=== PATIENT | male | born 1970 | race Caucasian/White ===

== ENCOUNTER 2018-10-25 10:35 | Day surgery (SDC) | payer MEDICAID ==
[2018-10-22 08:42] VITALS: BMI 38.9
[~2018-10-25 10:35] MED LIST: LACTATED RINGERS 1,000 ML IV SCH; LIDOCAINE 1% 20 ML VIAL (10MG/ML) FOR IV START INTRADERMA PRN
[2018-10-25 10:54] VITALS: TEMP 98
[2018-10-25] MEDS ORDERED: LACTATED RINGERS 1,000 ML IV ONE (10:56)
[2018-10-25] MEDS ORDERED: PROPOFOL 10 MG/ML 20 ML VIAL IV ONE (11:05)
[2018-10-25 11:45] VITALS: RESP 16
[2018-10-25 12:08] VITALS: BP 132/84; PULSE 72
--- NOTE | 2018-10-25 12:23 | P.PCN ---
Date of Procedure: 10/25/18 Procedure(s) Performed: Procedure: 1. Esophagogastroduodenoscopy and biopsy. 2. Total colonoscopy. Preoperative diagnosis: Iron deficiency anemia and dark stools. Postoperative diagnosis: 1. Small sliding hiatal hernia with no obvious esophagitis or complicated reflux disease. 2. Mild antral gastritis. 3. Biopsies obtained from the duodenum, antrum and esophagus. 4. Colonoscopy within normal limits. Preparation: HalfLytely prep. Sedation: Was provided by anesthesia. Brief clinical history: The patient is a 48-year-old male who is referred for this evaluation because of iron deficiency anemia and history of dark stools. There is history of acid reflux but no other alarm symptoms. This would be his first upper endoscopy and colonoscopy. Procedure: With the patient on his left lateral decubitus position and after informed consent and adequate sedation, I passed the Olympus-GIF H190 video upper endoscope through the cricopharyngeus down the esophagus. GE junction was around 41 cm from the incisors and there was a small sliding hiatal hernia but no obvious esophagitis or complicated reflux disease. The endoscope was then passed into the stomach which was insufflated with air and inspected in detail including the retroflex view in the cardia. There was some mottling and erythema in the antrum but no ulcers or erosions. Pyloric channel, duodenal bulb, post bulbar area and descending duodenum appeared within normal limits. Because of his symptoms and iron deficiency anemia, I obtained biopsies from the duodenum, antrum and esophagus then the endoscope was withdrawn and I proceeded with the colonoscopy. Perianal area did not show any fissures or fistulas. There were no masses felt on digital rectal examination. The Olympus CF H1 90L video colonoscope was then inserted in the rectum in the usual fashion and advanced to the cecum. The mucosa appeared healthy. No polyps or tumors were seen or any obvious diverticular disease or other pathology. I retroflexed the endoscope in the rectum before the endoscope was withdrawn. The patient tolerated the procedure well. Plan: The patient was reassured. He will follow up with you as planned and we will await the biopsy results. Consideration can be given for a capsule endoscopy if he continues to have issues with iron deficiency anemia and suggestion of blood loss in the GI tract.
== END 2018-10-25 12:16 | disposition home or self-care (01) ==
LOC: ORWHC2ENDO 10:35
DX: K29.50 Unspecified chronic gastritis without bleeding (principal); K21.0 Gastro-esophageal reflux disease with esophagitis; D50.9 Iron deficiency anemia, unspecified; K44.9 Diaphragmatic hernia without obstruction or gangrene; E66.01 Morbid (severe) obesity due to excess calories; G47.33 Obstructive sleep apnea (adult) (pediatric); E78.5 Hyperlipidemia, unspecified; I10 Essential (primary) hypertension; Z79.82 Long term (current) use of aspirin; Z79.899 Other long term (current) drug therapy; Z68.39 Body mass index [BMI] 39.0-39.9, adult
CPT/HCPCS: 88305; 45378; 43239; J2704

== ENCOUNTER → 2022-03-21 | Outpatient (CLI) | payer MEDICAID ==
--- NOTE | 2022-03-22 05:06 | MR ---
EXAMINATION TYPE: MR knee RT wo con DATE OF EXAM: 03/21/2022 COMPARISON: None HISTORY: Right knee pain and swelling for 1 year. Multiplanar multiecho imaging of the right knee without contrast. There is a moderate-sized knee joint effusion. The anterior and posterior cruciate ligaments are inta ct. Patellar tendon is intact. The lateral collateral ligament is intact. There is some thinning of t he medial collateral ligament. There is some medial subcutaneous edema. There is some spurring of the femoral and tibial condyles. There is narrowing of the medial joint space. There is some thinning of the lateral meniscus. There is extensive complex tear of the posterior horn medial meniscus. There i s thinning and anterior displacement of the anterior horn medial meniscus. There is medial displaceme nt of the medial meniscus. No fracture seen. There is some mild increased signal on the proton densit y images in the anterior medial and lateral tibial condyles. There is also some 3 cm area of edema in the medial femoral condyle. There is significant articular cartilage loss on the medial joint space. There is subcutaneous edema anterior to the knee. IMPRESSION: Moderate osteoarthritis medial joint space. Extensive complex tear of the medial meniscus. Mild edema in the distal femur and proximal tibia as above. Large knee joint effusion. Subcutaneous edema. Part ial tear of the medial collateral ligament.
== END | disposition home or self-care (01) ==
LOC: RADMRIMAIN 16:18
PROVIDERS: ATTEND Orthopaedic Surgery
DX: M17.11 Unilateral primary osteoarthritis, right knee (principal); S83.231A Complex tear of medial meniscus, current injury, right knee, initial encounter; S83.411A Sprain of medial collateral ligament of right knee, initial encounter; X58.XXXA Exposure to other specified factors, initial encounter

== ENCOUNTER → 2022-10-23 | Outpatient (CLI) | payer MEDICAID ==
[2022-10-23 22:44] LABS: Basophils # (A) 0.08 X 10*3/uL (0.00-0.10); Basophils % (A) 1.1 %; Eosinophils # (A) 0.16 X 10*3/uL (0.04-0.35); Eosinophils % (A) 2.2 %; HCT 40.7 % (39.6-50.0); HGB 13.2 g/dL (13.0-17.0); Immature Grans, Automated 0.3 %; Lymphocytes # (A) 1.37 X 10*3/uL (0.90-5.00); Lymphocytes % (A) 18.6 %; MCH 28.3 pg (27.0-32.0); MCHC 32.4 g/dL (32.0-37.0); MCV 87.2 fL (80.0-97.0); Mean Platelet Volume 10.7 fL (9.5-12.2); Monocytes # (A) 0.72 X 10*3/uL (0.20-1.00); Monocytes % (A) 9.8 %; NRBC Per 100 WBC 0 /100 WBCS (0.0-0.0); Neutrophils # (A) 5.01 X 10*3/uL (1.80-7.70); Platelet Count 285 X 10*3/uL (140-440); RBC 4.67 X 10*6/uL (4.40-5.60); RDW 13.6 % (11.5-14.5); WBC 7.36 X 10*3/uL (4.50-10.00)
[2022-10-23 23:11] LABS: Anion Gap 10.9 mmol/L (10.00-18.00); Carbon Dioxide 25.1 mmol/L (20.0-27.5); Potassium 3.7 mmol/L (3.5-5.5)
== END | disposition home or self-care (01) ==
LOC: LABWHC1 15:32
PROVIDERS: ATTEND Orthopaedic Surgery
DX: Z01.812 Encounter for preprocedural laboratory examination (principal); M23.91 Unspecified internal derangement of right knee
CPT/HCPCS: 36415; 80051; 85025; 93005

== ENCOUNTER 2022-10-30 07:44 | Day surgery (SDC) | payer MEDICAID ==
[2022-10-28 16:16] VITALS: BMI 43.8
--- NOTE | 2022-10-29 23:52 | HP ---
HISTORY AND PHYSICAL DATE OF SURGERY: 10/30/2022. HISTORY OF PRESENT ILLNESS: Krystian Acosta is a 52-year-old gentleman seen with progressive right knee pain. Options for treatment were discussed. He elected to proceed with arthroscopy. Consent was obtained. PAST MEDICAL HISTORY: Hypertension, hyperlipidemia. SURGICAL HISTORY: Noncontributory. DAILY MEDICATIONS: 1. Losartan. 2. Norvasc. 3. Omeprazole. 4. Simvastatin. ALLERGIES: None. SOCIAL HISTORY: Denies tobacco use. PHYSICAL EVALUATION OF THE RIGHT KNEE: Range of motion is 0-130. There is a [id number] effusion. Tenderness medial joint line. Positive medial Rowdy's. Ligaments are stable. Hip rotation is without pain. His distal neurovascular exam is intact. RADIOGRAPHS: Right knee radiographs revealed osteoarthritic changes. MRI right knee revealed a complex medial meniscal tear and a large effusion. IMPRESSION: 1. Internal derangement of right knee with medial meniscal tear. 2. Right knee osteoarthritis. 3. Hypertension. 4. Hyperlipidemia. 5. Gastroesophageal reflux disease. PLAN: Right knee arthroscopy with partial medial meniscectomy and debridement. MMODL / IJN: [id number] /
[~2022-10-30 07:44] MED LIST changes: +DEXAMETHASONE SOD PHOSPHATE 4 MG/ML 1 ML VIAL IV ONE; -LIDOCAINE 1% 20 ML VIAL (10MG/ML) FOR IV START INTRADERMA PRN; +ONDANSETRON 4 MG/2 ML VIAL IVP ONE; +ceFAZolin 3 GM in SODIUM CHLORIDE 0.9% 100 ML IVPB PRN
[2022-10-30] MEDS ORDERED: BUPIVACAINE (PF) 0.25% 30 ML VIAL SQ ONE ×2 (08:47→09:20)
[2022-10-30] MEDS ORDERED: SUCCINYLCHOLINE CHLORIDE 200 MG/10 ML VIAL IV ONE (08:50)
[2022-10-30] MEDS ORDERED: fentaNYL (PF) 50 MCG/ML 2 ML AMP ONE (08:50)
[2022-10-30] MEDS ORDERED: LIDOCAINE 2% INJ 20 MG/ML (2 ML VIAL) ONE (08:50)
[2022-10-30] MEDS ORDERED: PROPOFOL 10 MG/ML 20 ML VIAL IV ONE (08:50)
[2022-10-30] MEDS ORDERED: MIDAZOLAM 2 MG/2 ML VIAL ONE (08:50)
--- NOTE | 2022-10-30 09:37 | P.OP ---
Date of Procedure: 10/30/22 Preoperative Diagnosis: Internal derangement right knee Postoperative Diagnosis: 1. Tear medial meniscus right knee 2. Loose body right knee 3. Reactive synovitis medial, lateral and suprapatellar compartments right knee 4. 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 Grade 3 chondromalacia patellofemoral compartment right knee Procedure(s) Performed: 1. Arthroscopic partial medial meniscectomy right 2. Arthroscopic removal loose body right knee 3. Arthroscopic partial synovectomy medial, lateral and suprapatellar compartments right knee Anesthesia: AMYA, local Surgeon: Carter Alford Estimated Blood Loss (ml): 7 Pathology: none sent Condition: stable Disposition: PACU Indications for Procedure: 52-year-old patient seen with progressive right knee pain. After having treatment options discussed, he elected to proceed with arthroscopy. Operative Findings: See description of procedure Description of Procedure: Patient was taken to the operative suite. Patient underwent a general anesthetic by the department of anesthesia. Patient was given preoperative antibiotics. The right lower extremity was placed in a well-padded arthroscopic leg torres. The right leg was prepped and draped in the normal sterile orthopedic fashion. A lateral parapatellar and suprapatellar incision was made. Trochars were inserted. Arthroscopy was initiated. Suprapatellar pouch revealed diffuse thick reactive synovitis. The patellofemoral joint appeared congruently. There was grade 3 chondromalacia about the femoral sulcus and grade 2/3 chondromalacia about the patella with no osteochondral tears present.. The scope was guided into the medial gutter. No loose bodies or plica were identified. The scope was then guided into the medial compartment. A medial parapatellar incision was made. Trocar inserted followed by probe. There was a complex tear involving the posterior horn and midbody of the medial meniscus. There were grade 4 chondromalacia changes of both the femoral condyle and tibial plateau with large areas of exposed bone. There was thick reactive synovitis anteriorly. I performed a partial medial meniscectomy. I performed a partial synovectomy. The residual meniscus was stable. I again noted [id number] arthritis the medial compartment. Scope and probe were then guided into the intercondylar notch. Cruciates were identified, probed and found to be stable. The scope and probe were then guided into lateral compartment. There was a loose body lateral compartment. I introduced a pituitary and removed that without difficulty. There was some thick reactive synovitis anteriorly. There was some mild fraying of the meniscus with no specific tear. There were grade 1/2 chondromalacia involving the lateral compartment. I performed a partial synovectomy. There was good decompression of the synovitis. The scope was in guided back into the suprapatellar compartment. I introduced a motorized shaver into the suprapatellar compartment. I debrided some piecemeal fragments of meniscus that I encountered. I performed a partial synovectomy. Shaver was removed. I took one more look around the entire knee, no residual debris. Instruments were now removed from the joint. The joint was infiltrated with .25% Marcaine. Steri-Strips were applied to the portal sites. Sterile dressings were applied. The patient was placed into a NORBERTO hose. No tourniquet was utilized. The patient was awakened, transferred to a bed and taken to recovery stable satisfactory condition.
[2022-10-30] MEDS ORDERED: KETOROLAC 15 MG/ML 1 ML VIAL IVP ONE (09:40)
[2022-10-30] MEDS: HYDROmorphone 0.5 MG/0.5 ML SYRINGE IVP PRN ×2 (09:40→10:01)
[2022-10-30 09:46] VITALS: TEMP 97
[2022-10-30 09:58] VITALS: RESP 16
[2022-10-30 11:27] VITALS: BP 146/82; PULSE 87
== END 2022-10-30 11:41 | disposition home or self-care (01) ==
LOC: OR 07:44
PROVIDERS: ATTEND Orthopaedic Surgery
DX: M23.91 Unspecified internal derangement of right knee (principal); S83.241A Other tear of medial meniscus, current injury, right knee, initial encounter; M65.9 Synovitis and tenosynovitis, unspecified; M23.41 Loose body in knee, right knee; M22.41 Chondromalacia patellae, right knee; I10 Essential (primary) hypertension; E78.5 Hyperlipidemia, unspecified; Z79.1 Long term (current) use of non-steroidal anti-inflammatories (NSAID); Z79.899 Other long term (current) drug therapy
CPT/HCPCS: 29881; J2250; J0330; J1100; J0690; J2405; J3010; J1885; J2704; J1170; J2001

== ENCOUNTER → 2025-01-13 | Outpatient (CLI) | payer MEDICAID ==
--- NOTE | 2025-01-13 12:40 | CA ---
Transthoracic Echo Report Name: Krystian Edwards Age: 54 Gender: M : 1970 Exam Date: 01/13/2025 08:49 Exam Location: [facility] Ht (in): 76 Wt (lb): 365 Ordering Physician: Jake Gonsalez MD ([id number]) Attending/Referring Phys: Head Transfer Clerk Tabatha Sanchez RDCS Procedure CPT: Indications: i10, Other hypertrophic cardiomyopathy Cardiac Hx: Technical Quality: Technically difficult study Contrast 1: Definity Total Dose (mL): 2 Contrast 2: Total Dose (mL): MEASUREMENTS (Male / Female) Normal Values 2D ECHO LV Diastolic Diameter PLAX 4.4 cm 4.2 - 5.9 / 3.9 - 5.3 cm LV Systolic Diameter PLAX 3.0 cm IVS Diastolic Thickness 1.2 cm 0.6 - 1.0 / 0.6 - 0.9 cm LVPW Diastolic Thickness 1.2 cm 0.6 - 1.0 / 0.6 - 0.9 cm LV Relative Wall Thickness 0.5 RV Internal Dim ED PLAX 3.8 cm LA Systolic Diameter LX 3.5 cm 3.0 - 4.0 / 2.7 - 3.8 cm LA Volume 98.7 cm??? 18 - 58 / 22 - 52 cm??? LA Volume Index 32.4 cm???/m??? 16 - 28 cm???/m??? M-MODE Aortic Root Diameter MM 4.1 cm DOPPLER AV Peak Velocity 127.5 cm/s AV Peak Gradient 6.5 mmHg MV Area PHT 3.9 cm??? Mitral E Point Velocity 80.4 cm/s Mitral A Point Velocity 63.6 cm/s Mitral E to A Ratio 1.3 MV Deceleration Time 194.7 ms TR Peak Velocity 244.9 cm/s TR Peak Gradient 24.0 mmHg Right Ventricular Systolic Press 29.0 mmHg FINDINGS Left Ventricle Left ventricular ejection fraction is estimated at 55-60 %. Left ventricular cavity size normal. Mildly increased septal wall thickness. Normal left ventricular wall motion. Right Ventricle Normal right ventricular size and function. . Right ventricular systolic pressure within normal limits. Right Atrium Right atrium not well visualized. Left Atrium Mildly increased left atrial volume. Mildly increased left atrial area. No left atrial thrombus or mass present. Mitral Valve Structurally normal mitral valve. No mitral stenosis, regurgitation or prolapse. Aortic Valve Trileaflet aortic valve. No aortic valve stenosis or regurgitation. Tricuspid Valve Structurally normal tricuspid valve. Mild tricuspid regurgitation. Pulmonic Valve Structurally normal pulmonic valve. No pulmonic regurgitation. Pericardium No pericardial effusion. Aorta Mild aortic dilatation at the level of the sinuses of valsalva 41 mm CONCLUSIONS Technically difficult study LVEF 55% No obvious regional wall motion abnormality Mild concentric LVH Normal RV size and systolic function. No significant valvular dysfunction. Previewed by: Dr Ermias Starkey (Electronically Signed) Final Date: 13 January 2025 12:39
--- NOTE | 2025-01-13 12:54 | CA ---
Stress Echo Report Krystian Edwards Age: 54 Gender: M : 1970 Exam Date: 01/13/2025 09:53 Exam Location: [facility] Ht (in): 76 Wt (lb): 365 Ordering Physician: Jake Gonsalez MD Referring Physician: JAKE GONSALEZ,, Block Cuber: Tabatha Sanchez RDCS Technologist Procedure CPT: Indication: i10 ICD-9 Codes: Rhythm: Patient History: Cardiac Medications: LOSARTAN, SIMVASTATIN, PRILOSEC, AMLODIPINE, METOPROLOL, ASA, Medications in past 24 hours: Contrast: Definity Stress Results Protocol: Vaughn Total dose(mL): 2 Exercise Duration (min:sec): 5:[address] Depression (mm): Angina Score: Gaytan Score: METS: 6.8 Resting HR: 96 Resting BP: 138 / 88 Peak HR: 155 Peak BP: 176 / 44 Max Predicted HR: 168 92 % Max Predicted HR Target HR: 143 Double Product: 10402 Stress Summary: BP Response: Reason for Termination: MAX EXERTION/TARGET HR Cardiac Symptoms: NO SYMPTOMS ECG Analysis Resting ECG: Normal sinus rhythm Stress ECG: No significant ST-T wave changes that are diagnostic for ischemia Arrhythmia: No sustained arrhythmias or ectopic beats noticed during the stress test Echo Analysis Resting Echo: Normal global and segmental systolic function at rest. Normal regional wall motion at rest. Peak Echo Analysis: normal augmentation of global and segmental systolic function with no stress-induced regional wall motion normality MEASUREMENTS (Male/Female) Normal Values CONCLUSIONS Poor exercise tolerance only achieving 6.8 METS Normal hemodynamic and clinical response to treadmill exercise Nonischemic ECG and echocardiographic response to treadmill exercise Overall low probability for obstructive coronary artery disease. Dr Ermias Starkey (Electronically Signed) Final Date: 13 January 2025 12:53
== END | disposition home or self-care (01) ==
LOC: RADECHMAIN 08:22
PROVIDERS: ATTEND Internal Medicine Interventional Cardiology
DX: I10 Essential (primary) hypertension (principal); E78.2 Mixed hyperlipidemia; I07.1 Rheumatic tricuspid insufficiency
CPT/HCPCS: 93306; 93351; Q9957